=== PATIENT | male | born 1990 | race African-American/Black ===

== ENCOUNTER 2019-02-03 05:55 | Emergency (ER) | payer OTHER ==
[2019-02-03 06:03] VITALS: BP 122/87; PULSE 91; RESP 16; TEMP 98.2
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
--- NOTE | 2019-02-03 06:29 | XR ---
EXAM: XR Right Foot Complete, 3 or More Views CLINICAL HISTORY: Pain TECHNIQUE: Frontal, lateral and oblique views of the right foot. COMPARISON: No relevant prior studies available. FINDINGS: Bones/joints: Unremarkable. No acute fracture. No dislocation. Soft tissues: Unremarkable. No radiopaque foreign body. IMPRESSION: Normal right foot x-rays.
== END 2019-02-03 07:00 | disposition home or self-care (01) ==
LOC: EC 05:55
DX: S91.114A Laceration without foreign body of right lesser toe(s) without damage to nail, initial encounter (principal); F17.200 Nicotine dependence, unspecified, uncomplicated; V49.40XA Driver injured in collision with unspecified motor vehicles in traffic accident, initial encounter; Y93.89 Activity, other specified; Y92.414 Local residential or business street as the place of occurrence of the external cause
CPT/HCPCS: 99284

== ENCOUNTER 2021-11-14 13:44 | Emergency (ER) | payer OTHER ==
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
[2021-11-14 16:14] VITALS: BP 128/78; PULSE 78; RESP 16; TEMP 98.2
== END 2021-11-14 16:13 | disposition home or self-care (01) ==
LOC: EC 13:44
DX: S40.022A Contusion of left upper arm, initial encounter (principal); V89.2XXA Person injured in unspecified motor-vehicle accident, traffic, initial encounter